=== PATIENT | female | born 1955 | race Hispanic/Latino ===

== ENCOUNTER → 2017-11-09 | Outpatient (CLI) | payer BC ==
[~2017-11-09] MED LIST: HYDROCODON-ACE1 EA12
--- NOTE | 2017-11-09 15:04 | Diagnostic Imaging Report ---
PROCEDURE:LIMITED NON-VASCULAR EXTREMITY ULTRASOUND COMPARISON:None. INDICATIONS:Neoplasm Of Uncertain Behavior Of Skin TECHNIQUE:Grayscale and color Doppler images were obtained of the right anterior lower extremity in the areas of concern as indicated by the patient. FINDINGS: No sonographically apparent masses or fluid collections within the anterior subcutaneous soft tissues of the right anterior palma. CONCLUSION: No sonographic evidence of mass or fluid collection in the right anterior palma. Dictated by: Logan Graff M.D. on 11/09/2017 at 15:08 Electronically approved by: Logan Graff M.D. on 11/09/2017 at 15:08
== END ==
LOC: US 14:16
PROVIDERS: ATTEND Family Medicine
DX: D48.5 Neoplasm of uncertain behavior of skin (principal)
CPT/HCPCS: 76882

== ENCOUNTER 2018-06-07 20:59 | Emergency (ER) | payer MEDICARE, BC ==
[~2018-06-07] VITALS: Ht 154.9 cm; Wt 113.4 kg
--- OUTSIDE RECORDS SUMMARY | 2018-06-07 21:03 | XMS REPORT ---
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 Allergies, Adverse Reactions, Alerts This patient has no known allergies or adverse reactions. Medications This patient has no known medications. Results Test Description Test Time Test Comments Text Results Atomic Results Result Comments US EXTREMITY ATKINS NON-VAS 2017-11-09 15:08:00 [place] [address] Patient Name: HEIDI SMITH MR #: [id number] : 1955 Age/Sex: 62/F Req #: [id number] Adm Physician: Ordered by: MAYITO DENNIS DO Report #: [id number] Location: US Room/Bed: Procedure: [id number] US/US EXTREMITY ATKINS NON-VAS Exam Date: Exam Time: REPORT STATUS: Signed PROCEDURE: LIMITED NON-VASCULAR EXTREMITY ULTRASOUND COMPARISON: None. 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 FINDINGS: No sonographically apparent masses or fluid collections within the anterior subcutaneous soft tissues of the right anterior palma. CONCLUSION: No sonographic evidence of mass or fluid collection in the right anterior palma. Dictated by: Logan Lacey M.D. on 11/09/2017 at 15:08 Electronically approved by: Logan Lacey M.D. on 11/09/2017 at 15:08 Dictated By: LOGAN LACEY MD [id number] Transcribed By: BROOKE on 11/09/17 1500 COPY TO: MAYITO DENNIS DO
[2018-06-07 21:45] LABS: BASOPHILS # (AUTO) 0.1 (0.0-0.1); BASOPHILS % 0.3 % (0.0-1.0); EOSINOPHILS # (AUTO) 0.1 (0.0-0.4); EOSINOPHILS % 0.7 % (0.0-6.0); HEMATOCRIT 46.1 % (34.2-44.1); HEMOGLOBIN 14.9 g/dL (12.0-16.0); LYMPHOCYTES # (AUTO) 3.8 (1.0-3.2); LYMPHOCYTES % 21.9 % (18.0-39.1); MEAN CORPUSCULAR HEMOGLOBIN 27.6 pg (28-32); MEAN CORPUSCULAR HGB CONC 32.3 g/dL (31-35); MEAN CORPUSCULAR VOLUME 85.4 fL (81-99); MONOCYTES # (AUTO) 1.4 (0.2-0.8); MONOCYTES % 8.2 % (4.4-11.3); NEUTROPHILS # (AUTO) 11.8 (2.1-6.9); NEUTROPHILS % 68.3 % (38.7-80.0); PLATELET COUNT 367 x10e3/uL (140-360); RED CELL DISTRIBUTION WIDTH 14.6 % (11.7-14.4)
[2018-06-07 21:51] LABS: INR 0.87; PROTHROMBIN TIME 12.6 seconds (11.9-14.5)
[2018-06-07 21:52] LABS: PARTIAL THROMBOPLASTIN TIME 22.4 seconds (23.8-35.5)
[2018-06-07 21:58] LABS: ALBUMIN 3.9 g/dL (3.5-5.0); ALBUMIN/GLOBULIN RATIO 1.2 (0.8-2.0); ANION GAP 20.3 mmol/L (8-16); CREATININE, SERUM 1.34 mg/dL (0.57-1.11); POTASSIUM 3.3 mmol/L (3.5-5.1)
[2018-06-07 22:34] VITALS: BP 154/82
== END 2018-06-07 22:35 | disposition home or self-care (01) ==
LOC: ER 20:59
DX: R04.0 Epistaxis (principal); I10 Essential (primary) hypertension; E11.9 Type 2 diabetes mellitus without complications
CPT/HCPCS: 36415; 80053; 85025; 85610; 85730; 99283

== ENCOUNTER 2018-06-17 11:35 | Emergency (ER) | payer MEDICARE, BC ==
[~2018-06-17] VITALS: Ht 154.9 cm; Wt 113.4 kg
--- NOTE | 2018-06-17 12:48 | NUR ---
ELIAS Galvez AT BEDSIDE EVALUATING PATIENT. PATIENT GOT AHOLD OF HER ENT DR. HAM AND SHE STATES SHE DOES HAVE AN APPT. WITH HIM AT 2 PM
--- NOTE | 2018-06-17 13:07 | NUR ---
PATIENT HAS NOT HAD ANY NOSE BLEED SINCE ARRIVAL
== END 2018-06-17 13:16 | disposition home or self-care (01) ==
LOC: ER 11:35
DX: R04.0 Epistaxis (principal); I10 Essential (primary) hypertension; E11.9 Type 2 diabetes mellitus without complications; F41.9 Anxiety disorder, unspecified; E07.9 Disorder of thyroid, unspecified; Z88.0 Allergy status to penicillin; Z88.2 Allergy status to sulfonamides
CPT/HCPCS: 99282

== ENCOUNTER → 2023-04-09 | Outpatient (REF) | payer MEDICARE, BC ==
[~2023-04-09] MED LIST changes: +LYRICA75 MG PO
== END ==
LOC: MRI 10:37
PROVIDERS: ATTEND Family Medicine
DX: M54.32 Sciatica, left side (principal)
CPT/HCPCS: 72148